=== PATIENT | female | born 1970 | race Asian ===

== ENCOUNTER 2017-02-23 19:19 | Inpatient (IN) ==
[2017-02-23] MEDS ORDERED: ONDANSETRON 4 MG/2 ML VIAL IV STA (19:44)
[2017-02-23] MEDS ORDERED: METOPROLOL TARTRATE 25 MG TABLET PO STA (19:44)
[2017-02-23] MEDS ORDERED: ASPIRIN 325 MG TABLET PO STA (19:44)
[2017-02-23] MEDS ORDERED: NITROGLYCERIN 2% OINT 1 INCH/GM PACK TOP STA (19:44)
[2017-02-23] MEDS ORDERED: MORPHINE 2 MG/1 ML SYRINGE IV STA (19:44)
[2017-02-23] MEDS ORDERED: SODIUM CHLORIDE 0.9% 500 ML IV STA (19:44)
[2017-02-23] MEDS ORDERED: ALUM/MAG/SIMETH/LIDO VISC 1:1 30 ML BOTTLE PO STA (19:44)
--- NOTE | 2017-02-23 19:54 | Emergency Department Note ---
Nikolai Holt Brittany, am scribing for, and in the presence of, Conor Lincoln MD 19:50. Salazar Holt Charles R, MD, personally performed the services described in this documentation, ascribed by Loraine Menchaca in my presence, and it is both accurate and complete [id number] . Arrival - Arrival Chief Complaint: Chest Pain Stated Complaint: bad headaches/chest pains and SOb/diabetic ED Nursing Triage Note: pt to triage with daughter. pt can speak a little latvian. daughter is interpertating for her. pt states throught daughter that she has been tired, having a headache, and chest pain since yesterday. daught er states pt has not taken her bp or dm meds chance few months Mode of Arrival: Ambulatory Limitations: Language Barrier Source: Patient, Family, Old Records Reviewed, RN Notes Reviewed Time Seen by Provider: 02/23/17 19:38 - History of Present Illness HPI Narrative: Ms. Conner is a 46 y/o female presenting to the ED with c/o chest pain with an onset of 2 days. Patient speaks little [place] so her daughter will be providing the history. Per daughter, patient began having chest pain yesterday and some epigastric pain as well. Chest pain is worsened with walking, but is relieved at rest. Patient has been short of breath and nauseated with this, but has had no diaphoresis, vomiting, arm pain, back pain, or neck pain. Patient was followed in [place] for a cardiac problem that the daughter believes to have been an artery problem. On exam patient is noted to have a systolic ejection murmur and daughter then states that she believes that her mother's heart problem might've in fact been the heart murmur in [place]. Patient has a history of Uterine Fibroid Tumors and daughter notes patient is on medication for this to shrink these. If patient's tumors have shrunk within the next 3 months her provider covering this will remove them -per daughter. Daughter denies patient having a history of GERD. No other complaint/pain. Onset (ago): day(s) (2) Consistency: intermittent Severity: moderate Severity scale (1-10): 6 Quality: aching Allergies/Adverse Reactions: Allergies Allergy/AdvReac Type Severity Reaction Status Date / Time No Known Allergies Allergy Unverified 02/23/17 19:33 Home Medications: Home Medications Medication Instructions Recorded Confirmed Type Phenazopyridine HCl [Pyridium] 200 mg PO TID #9 tablet 12/19/16 12/25/16 Rx HYDROcodone/ACETAMIN 7.5-325 1 tablet PO Q6H PRN #20 tablet 12/20/16 12/25/16 Rx [[place] 7.5-325] Ondansetron [Ondansetron Odt] 8 mg PO Q4H PRN #10 tab.rapdis 12/20/16 12/25/16 Rx Ondansetron Odt Tab [Zofran Odt] 4 mg PO Q6H #15 tablet 12/25/16 Rx Review of System - Review of System 12 point system: reviewed and no additional remarkable complaints except as stated - Review of System Constitutional: Absent: chills, fever Eyes: Absent: vision change Head/Ears/Nose/Throat: Absent: nasal drainage, sore throat Respiratory: Present: respiratory distress Cardiovascular: Present: chest pain Gastrointestinal: Present: abdominal pain, nausea. Absent: vomiting, diarrhea, constipation Genitourinary female: Absent: dysuria, frequency, urgency Musculoskeletal: Absent: arm pain, back pain, leg pain, neck pain Skin: Absent: rash Neurological: Absent: headache Psychiatric: Absent: anxiety, depression Hematological/Lymphatic: Absent: easy bleeding, easy bruising Medical,Surgical,& Family Hx - Medical History Cardio: History of: Hypertension Endocrine: History of: Diabetes Mellitus (NIDDM) No history of: Diabetes Mellitus (IDDM) - Surgical History Surgical History: noncontributory - Family History Family History: noncontributory - Social History Smoking Status: Never smoker Frequency of Alcohol Use: None Type of Drug Use: None Exam Vital Signs: Vital Signs Temperature 97.3 F L 02/23/17 19:26 Pulse Rate 73 02/23/17 19:26 Respiratory Rate 18 02/23/17 19:26 Blood Pressure 139/89 02/23/17 19:26 O2 Sat by Pulse Oximetry 99 02/23/17 19:26 - General General appearance: alert, in no apparent distress - Head Head exam: Present: atraumatic, normocephalic, normal inspection - Eye Eye exam: Present: normal appearance, PERRL, EOMI - ENT ENT exam: Present: normal exam, normal oropharynx - Neck Neck exam: Present: normal inspection, full ROM, trachea midline - Chest Chest inspection: Present: normal inspection, symmetric chest wall rise - Respiratory Respiratory exam: Present: normal lung sounds bilaterally - Cardiovascular Cardiovascular exam: Present: regular rate, normal rhythm, murmur (4/6 systolic ejection murmur, sounds almost like Mitral Valve Prolapse). Absent: normal heart sounds - Abdominal Exam Abdominal exam: Present: soft, tenderness (epigastric tenderness to palpation), normal bowel sounds - Extremities Exam Extremities exam: Present: full ROM, pedal edema (+1 edema to bilateral lower extremities) - Back Exam Back exam: Present: normal inspection - Neurological Exam Neurological exam: Present: alert, oriented X3, CN II-XII intact. Absent: motor sensory deficit - Psychiatric Psychiatric exam: Present: normal affect, normal mood - Skin Skin exam: Present: warm, dry, intact, normal color Course - Consultations Consultation #1: Hospitalist will admit patient Time: 20:51 Results - Labs CBC & BMP: 02/23/17 19:44 02/23/17 19:44 Lab Results: I have reviewed the patients labs Labs: Laboratory Tests 02/23/17 02/23/17 02/23/17 19:44 19:44 19:44 WBC 7.0 RBC 4.74 Hgb 13.2 Hct 39.2 MCV 82.7 L Plt Count 217 Urine Color Straw Urine Appearance Clear Urine pH 6.0 Ur Specific [place] 1.005 Urine Protein Negative Urine Glucose (UA) Negative Urine Ketones Negative Urine Blood Large Urine Nitrate Negative Urine Bilirubin Negative Urine Urobilinogen < 2.0 H Urine Leukocytes Negative Urine RBC 82 Urine WBC 4 Ur Squamous Epith Cells Occasional Urine Mucus Occasional Urine Opiates Screen Negative Ur Barbiturates Screen Negative Ur Phencyclidine Scrn Negative U Amphetamine/Methamph Negative U Benzodiazepines Scrn Negative U Cocaine Metab Screen Negative U Cannabinoids Screen Negative Laboratory Tests 02/23/17 02/23/17 02/23/17 19:44 19:44 19:44 INR PT Patient/Control Mix D-Dimer, Quantitative 0.7 Sodium 139 Potassium 3.5 Chloride 103 Carbon Dioxide 26 Anion Gap 13.5 BUN 14 Creatinine 0.60 GFR Calculation 105 BUN/Creatinine Ratio 23.00 H Glucose 130 H Calculated Osmolality 279.5 Calcium 9.2 Magnesium Total Bilirubin < 0.39 AST 31 ALT 51 Alkaline Phosphatase 95 Troponin I < 0.015 Total Protein 8.0 Albumin 4.2 Globulin 3.8 H Albumin/Globulin Ratio 1.1 Lipase 02/23/17 02/23/17 19:44 19:44 INR 0.9 PT Patient/Control Mix 9.7 D-Dimer, Quantitative Sodium Potassium Chloride Carbon Dioxide Anion Gap BUN Creatinine GFR Calculation BUN/Creatinine Ratio Glucose Calculated Osmolality Calcium Magnesium 1.9 Total Bilirubin AST ALT Alkaline Phosphatase Troponin I Total Protein Albumin Globulin Albumin/Globulin Ratio Lipase 212.0 Laboratory Tests 02/23/17 02/23/17 19:44 19:44 INR 0.9 PT Patient/Control Mix 9.7 D-Dimer, Quantitative 0.7 - Diagnostic Findings Procedure: Chest x-ray: image reviewed by me (Negative) Disposition Clinical Impression: Chest pain, Heart murmur, Angina, Diabetes, Hypertension, History of uterine fibroid Case discussed with: patient, patient's family Disposition: Still a Patient Condition: Stable Time of Disposition: 21:01
[2017-02-23 19:56] LABS: Basophils % 0.3 % (0.0-0.8); Eosinophils # 0.1 10*3/uL (0.0-0.87); Eosinophils % 1.6 % (0.00-10.9); Hematocrit 39.2 VOL% (35.7-47.0); Hemoglobin 13.2 GM/DL (12.0-16.0); Immature Granulocytes % 0.3 %; Immature Granulocytes Absolute 0.02 #; Lymphocytes # 2.7 10*3/uL (1.4-4.0); Mean Corpuscular HGB Conc 33.7 GM/DL (32-36); Mean Corpuscular Hemoglobin 28 PG (27-34); Mean Corpuscular Volume 82.7 FL (87-102); Monocytes # 0.4 10*3/uL (0.11-0.8); Monocytes % 6.3 % (1.7-12.7); Neutrophils # 3.8 10*3/uL (1.4-7.4); Neutrophils % 53.5 % (38.7-73.9); Platelet Count 217 T/CUMM (130-400); Red Blood Count 4.74 MC/CUMM (3.8-5.5); Red Cell Distribution Width 13.8 % (9.3-17.3)
[2017-02-23] MEDS ORDERED: ONDANSETRON 4 MG/2 ML VIAL ONE ×2 (20:01→22:40)
[2017-02-23] MEDS ORDERED: METOPROLOL TARTRATE 25 MG TABLET ONE (20:01)
[2017-02-23] MEDS ORDERED: NITROGLYCERIN 2% OINT 1 INCH/GM PACK TOP ONE (20:01)
[2017-02-23] MEDS ORDERED: ALUM/MAG/SIMETH/LIDO VISC 1:1 30 ML BOTTLE PO ONE (20:02)
[2017-02-23] MEDS ORDERED: ASPIRIN 325 MG TABLET ONE (20:02)
[2017-02-23] MEDS ORDERED: MORPHINE 2 MG/1 ML SYRINGE ONE (20:02)
[2017-02-23 20:05] LABS: Apearance,Urine CLEAR (Clear); Bilirubin,Urine Negative (Negative); Blood, Urine Large mg/dL (Negative); Glucose,Urine (UA) Negative (Negative); Ketones,Urine Negative (Negative); Mucus,Urine Occasional /LPF (Occasional); Nitrite,Urine Negative (Negative); Protein,Urine Negative; RBC,Urine 82 /HPF (0-4); Squamous Epithelial Cell,Urine Occasional /HPF (0-10); Urine Color Straw (Yellow); Urine Specific Gravity 1.005 (1.001-1.035); Urine Urobilinogen < 2.0 EU/DL (0.2-1.0); WBC,Urine 4 /HPF (0-6)
[2017-02-23 20:06] LABS: INR 0.9; PT Patient Result 9.7 SECS
[2017-02-23 20:09] LABS: Barbiturates Screen,Urine Negative (Negative); Benzodiazepines Screen,Urine Negative (Negative); Cannabinoid Screen,Urine Negative (Negative); Opiate Screen,Urine Negative (Negative); Phencyclidine Screen,Urine Negative (Negative)
[2017-02-23 20:14] LABS: Magnesium 1.9 MG/DL (1.8-2.4)
[2017-02-23 20:20] LABS: Alanine Aminotransferase 51 U/L (13-56); Albumin 4.2 G/DL (3.4-5.0); Alkaline Phosphatase 95 U/L (45-117); Aspartate Amino Transferase 31 U/L (0-37); Bilirubin,Total < 0.39 MG/DL (0.2-1.0); Blood Urea Nitrogen 14 MG/DL (7-18); Calcium 9.2 MG/DL (8.5-10.1); Glucose 130 MG/DL (74-106); Osmolality,Calculated 279.5 MOS/KG (273-304); Potassium 3.5 MMOL/L (3.5-5.1); Sodium 139 MMOL/L (136-145)
--- NOTE | 2017-02-23 20:42 | XRay Report ---
Exam: XR chest 2V Indication: Midline chest pain Comparison study: 12/20/2016 Findings: The heart, mediastinum and bony structures are stable from prior. There is no focal consolidation, pneumothorax or pleural effusion identified. Impression: No acute cardiopulmonary process. No significant change from prior. PROCEDURE INTERPRETED AT [facility] DEPARTMENT OF RADIOLOGY Final Report Signed by: Cayetano Rodgers
--- NOTE | 2017-02-23 21:43 | Hospitalist History & Physical ---
Assessment and Plan (1) Unstable angina Status: Acute Current Visit: Yes (2) Type 2 diabetes mellitus Status: Acute Current Visit: Yes Qualifiers: Diabetes mellitus complication status: with unspecified complications Diabetes mellitus long-term insulin use: without long-term use Qualified Code( s): E11.8 - Type 2 diabetes mellitus with unspecified complications (3) Medical non-compliance Status: Acute Current Visit: Yes (4) Nausea Status: Acute Assessment and plan: Plan: Admit to telemetry, start aspirin, statin, Lovenox, as needed nitroglycerin Cardiology consult in the morning, possible stress test Check serial cardiac enzymes, repeat EKG if chest pain returns Check A1c, sliding scale and Accu-Cheks for now Current Visit: Yes History of Present Illness Chief complaint: Chest pain/pressure, worse with exertion History of present illness: Ms. Conner is a 46 year old Maur[place] female, whose history is translated by her adult daughter. Apparently the patient has been having waxing and waning chest tightness and discomfort over the last week or so. It has worsened in intensity, and increased in frequency over the last 24 hours. Her daughter cannot convince her to come to the emergency room last night however today the pain, shortness of breath, and intractable nausea have become severe enough that the patient finally agreed to come the emergency room. To our knowledge she has no history of coronary artery disease, however she has a history of type 2 diabetes and has not taken her metformin in months. She was diagnosed with "pre-hypertension," and is not prescribed any antihypertensive. She rates her pain an 8 out of 10 at worst, exertion exacerbates her symptoms. The pain is nonradiating, localized substernally. Home Medications Medication Instructions Recorded Confirmed Type Phenazopyridine HCl [Pyridium] 200 mg PO TID #9 tablet 12/19/16 12/25/16 Rx HYDROcodone/ACETAMIN 7.5-325 1 tablet PO Q6H PRN #20 tablet 12/20/16 12/25/16 Rx [[place] 7.5-325] Ondansetron [Ondansetron Odt] 8 mg PO Q4H PRN #10 tab.rapdis 12/20/16 12/25/16 Rx Ondansetron Odt Tab [Zofran Odt] 4 mg PO Q6H #15 tablet 12/25/16 Rx Allergies Allergy/AdvReac Type Severity Reaction Status Date / Time No Known Allergies Allergy Unverified 02/23/17 19:33 Medical,Surgical,& Family Hx - Medical History Cardio: History of: Hypertension Endocrine: History of: Diabetes Mellitus (NIDDM) (Noncompliant with metformin for months according to daughter) No history of: Diabetes Mellitus (IDDM) - Surgical History Surgical History: noncontributory Additional Surgical History: Denies past surgical history - Family History Additional Family History: Unknown family history - Social History Smoking Status: Never smoker Frequency of Alcohol Use: None Type of Drug Use: None Marital Status: Unknown Functional capacity: independent ambulation Review of systems: A 12 point review of systems is negative except as specified in the HPI Exam - Constitutional Vitals: Period Temp Pulse Resp BP Sys/[place] Pulse Ox Last 24 Hr 97.3 F-97.3 F 73-73 18-18 139-139/89-89 99 Exam: EXAM: CONSTITUTIONAL: non toxic, NAD HEENT: NC, AT, OP benign, LYNDON, EOMI CV: RRR no m/g/r, no reproducible pain with palpation RESP: clear B/L, no w/r/r GI: abd soft, NT, ND, +bowel sounds INTEGUMENTARY: no lesions or rash EXTREMITIES: no c/c/e NEURO: no focal deficits PSYCH: unremarkable, A/O x3 Results - Labs CBC & BMP: 02/23/17 19:44 02/23/17 19:44 Lab Results: I have reviewed the past 24 hour labs - EKG EKG shows: sinus rhythm - Diagnostic Findings Procedure: Chest x-ray: image reviewed by me, report reviewed by me
[2017-02-23] MEDS ORDERED: MORPHINE 2 MG/1 ML SYRINGE IV PRN (22:02)
[2017-02-23] MEDS ORDERED: BISACODYL 5 MG TABLET PO PRN (22:02)
[2017-02-23] MEDS ORDERED: GLUCAGON 1 MG VIAL IM PRN (22:02)
[2017-02-23] MEDS ORDERED: ACETAMINOPHEN 325 MG TABLET PO PRN (22:02)
[2017-02-23] MEDS ORDERED: ONDANSETRON 4 MG/2 ML VIAL IV PRN (22:02)
[2017-02-23] MEDS ORDERED: DEXTROSE 50% 25 GM/50 ML VIAL IV PRN (22:02)
[2017-02-23] MEDS ORDERED: PROMETHAZINE 25 MG/1 ML VIAL IM PRN (22:02)
[2017-02-23] MEDS ORDERED: NITROGLYCERIN SL 0.4 MG TABLET SL PRN (22:06)
[2017-02-23] MEDS ORDERED: ATORVASTATIN 40 MG TABLET PO SCH (22:50)
[2017-02-24] MEDS: ENOXAPARIN 80 MG/0.8 ML SYRINGE SUBCUT SCH ×2 (00:23→11:31)
[2017-02-24 00:31] LABS: Troponin I Only < 0.015 NG/ML (0.00-0.045)
[2017-02-24 02:28] LABS: Basophils % 0.7 % (0.0-0.8); Eosinophils # 0.1 10*3/uL (0.0-0.87); Hematocrit 36.2 VOL% (35.7-47.0); Immature Granulocytes % 0.3 %; Immature Granulocytes Absolute 0.02 #; Lymphocytes # 1.7 10*3/uL (1.4-4.0); Lymphocytes % 27.6 % (21.3-54.2); Mean Corpuscular HGB Conc 33.1 GM/DL (32-36); Mean Corpuscular Hemoglobin 27 PG (27-34); Mean Corpuscular Volume 82.5 FL (87-102); Mean Platelet Volume 12.3 FL (9.6-12.0); Monocytes # 0.4 10*3/uL (0.11-0.8); Monocytes % 5.7 % (1.7-12.7); Neutrophils % 64.7 % (38.7-73.9); Platelet Count 188 T/CUMM (130-400); Red Blood Count 4.39 MC/CUMM (3.8-5.5); Red Cell Distribution Width 13.5 % (9.3-17.3); White Blood Count 6.1 T/CUMM (4-12)
[2017-02-24 03:05] LABS: Albumin 3.5 G/DL (3.4-5.0); Bilirubin,Total 0.8 MG/DL (0.2-1.0); Calcium 8.6 MG/DL (8.5-10.1); Magnesium 1.8 MG/DL (1.8-2.4); Osmolality,Calculated 283.3 MOS/KG (273-304); Potassium 3.7 MMOL/L (3.5-5.1); Risk Ratio 4.33; Total Protein 6.8 G/DL (6.4-8.3); VLDL CHOLESTEROL 21.6 MG/DL
--- NOTE | 2017-02-24 06:54 | EKG Report ---
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
[2017-02-24 07:09] LABS: Troponin I Only < 0.015 NG/ML (0.00-0.045)
[2017-02-24] MEDS: INSULIN REGULAR 100 UNIT/ML SUBCUT SCH ×2 (08:37→12:32)
[2017-02-24] MEDS ORDERED: ASPIRIN EC 325 MG TABLET PO SCH (09:00)
[2017-02-24] MEDS ORDERED: PANTOPRAZOLE 40 MG TABLET PO SCH (09:00)
--- NOTE | 2017-02-24 10:17 | EKG Report ---
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
[2017-02-24 12:22] VITALS: BP 128/73
--- NOTE | 2017-02-24 12:41 | Cardiology Consult Note ---
Assessment and Plan (1) Nausea Status: Acute Assessment and plan: She has had multiple episodes of nausea and vomiting over the last few months. She may benefit from a gastroenterology evaluation as an outpatient. Current Visit: Yes (2) Chest pain Status: Acute Assessment and plan: The patient has atypical chest pain with a normal EKG and multiple sets of negative cardiac enzymes. Patient wants to go home. I think this is reasonable. I would like for her to have a nuclear stress test done in the clinic sometime next week and we can follow-up with her after this. Current Visit: Yes (3) Hypertension Status: Acute Current Visit: Yes (4) Medical non-compliance Status: Acute Current Visit: Yes (5) Type 2 diabetes mellitus Status: Acute Current Visit: Yes Qualifiers: Diabetes mellitus complication status: with unspecified complications Diabetes mellitus fci insulin use: without supervisor intermediates use Qualified Code( s): E11.8 - Type 2 diabetes mellitus with unspecified complications History of Present Illness - Consult Narrative History of present illness: Ms. Conner is a 46 year old female with a history of mild type 2 diabetes. The patient does not speak Togolese and so the history is obtained from her daughter who translated. Patient has apparently been "feeling bad" for the last week or so. She feels tired, nauseated, and last night had multiple episodes of vomiting. She has some occasional chest pain symptoms. This is in the left upper chest area. There is no radiation. There is no associated diaphoresis. She has had episodes of nausea but they are not specifically associated with chest pain. There is no specific exacerbating or relieving factors. The symptoms are moderate in severity. She has no known history of coronary artery disease. The patient apparently has been having headaches on and off associated with her nausea. It is unclear if this could be a migraine type phenomenon. She was treated with Zofran and her nausea symptoms have resolved. At the time I was seeing her she was feeling back to normal and was wanting to go home. The patient's daughter reports that she had a stress test years ago in [place] that did not show any high risk features apparently. I do not have any of these reports. Reviewing her old records here, she did have multiple emergency room visits recently with abdominal discomfort and nausea/ vomiting. Her workups have been benign, although she did have uterine fibroids. CC: Pattie Ellis MD - Home Medications and Allergies Home Medications: Home Medications Medication Instructions Recorded Confirmed Type No Known Home Medications [No 02/24/17 02/24/17 History Known Home Medications] Allergies/Adverse Reactions: Allergies Allergy/AdvReac Type Severity Reaction Status Date / Time No Known Allergies Allergy Unverified 02/23/17 19:33 12 point system: reviewed and no additional remarkable complaints except as stated Medical,Surgical,& Family Hx - Medical History Cardio: History of: Hypertension Endocrine: History of: Diabetes Mellitus (NIDDM) (Noncompliant with metformin for months according to daughter) No history of: Diabetes Mellitus (IDDM) - Social History Smoking Status: Never smoker Frequency of Alcohol Use: None Type of Drug Use: None Physical Examination Vital Signs Temp Pulse Resp BP Pulse Ox 97.3 F L 73 18 139/89 99 02/23/17 19:26 02/23/17 19:26 02/23/17 19:26 02/23/17 19:26 02/23/17 19:26 Other: General: Appears well developed, well nourished, no apparent distress HEENT: Normocephalic, atraumatic Neck: Supple Neck, Midline Trachea, No Bruit, No JVD Cardiac: Regular rhythm, No Murmur, no gallop, no rub Lungs: Clear to auscultation, No Wheeze, Rales, Rhonchi Neuro: Cranial Nerve 2-12 Intact, Motor Function Grossly Intact Abdomen: Soft, Active Bowel Sounds, No Masses, No Pulsations/Bruits Skin: Normal color, no rash Extremities: No Clubbing, No Cyanosis, No Edema, Normal Upper Extr. Pulses Musculoskeletal: No acute abnormality noted Psychiatric: The patient does not appear to be anxious or depressed Result/EKG - Labs CBC & BMP: 02/24/17 01:59 02/24/17 01:59 Lab Results: I have reviewed the past 24 hour labs Labs: Laboratory Results - last 24 hr 02/23/17 02/23/17 02/23/17 19:44 19:44 19:44 WBC 7.0 RBC 4.74 Hgb 13.2 Hct 39.2 MCV 82.7 L MCH 28 MCHC 33.7 RDW 13.8 Plt Count 217 MPV 12.0 Neut % (Auto) 53.5 Lymph % (Auto) 38.0 [place] % (Auto) 6.3 Eos % (Auto) 1.6 Baso % (Auto) 0.3 Neut # (Auto) 3.8 Lymph # (Auto) 2.7 [place] # (Auto) 0.4 Eos # (Auto) 0.1 Baso # (Auto) 0.0 Immature Gran % 0.3 Nucleated RBC % 0.0 Immature Gran # 0.02 Nucleated RBCs # 0.00 INR PT Patient/Control Mix D-Dimer, Quantitative 0.7 Sodium 139 Potassium 3.5 Chloride 103 Carbon Dioxide 26 Anion Gap 13.5 BUN 14 Creatinine 0.60 GFR Calculation 105 BUN/Creatinine Ratio 23.00 H Glucose 130 H POC Glucose Hemoglobin A1c Calculated Osmolality 279.5 Calcium 9.2 Magnesium Total Bilirubin < 0.39 AST 31 ALT 51 Alkaline Phosphatase 95 Total Creatine Kinase CK-MB (CK-2) Troponin I B-Natriuretic Peptide Total Protein 8.0 Albumin 4.2 Globulin 3.8 H Albumin/Globulin Ratio 1.1 Triglycerides Cholesterol LDL Cholesterol VLDL Cholesterol HDL Cholesterol Heart Disease Risk Ratio Lipase Urine Color Urine Appearance Urine pH Ur Specific [place] Urine Protein Urine Glucose (UA) Urine Ketones Urine Blood Urine Nitrate Urine Bilirubin Urine Urobilinogen Urine Leukocytes Urine RBC Urine WBC Ur Squamous Epith Cells Urine Mucus Ur Culture Indicated? Urine Opiates Screen Ur Barbiturates Screen Ur Phencyclidine Scrn U Amphetamine/Methamph U Benzodiazepines Scrn U Cocaine Metab Screen U Cannabinoids Screen 02/23/17 02/23/17 02/23/17 19:44 19:44 19:44 WBC RBC Hgb Hct MCV MCH MCHC RDW Plt Count MPV Neut % (Auto) Lymph % (Auto) [place] % (Auto) Eos % (Auto) Baso % (Auto) Neut # (Auto) Lymph # (Auto) [place] # (Auto) Eos # (Auto) Baso # (Auto) Immature Gran % Nucleated RBC % Immature Gran # Nucleated RBCs # INR 0.9 PT Patient/Control Mix 9.7 D-Dimer, Quantitative Sodium Potassium Chloride Carbon Dioxide Anion Gap BUN Creatinine GFR Calculation BUN/Creatinine Ratio Glucose POC Glucose Hemoglobin A1c Calculated Osmolality Calcium Magnesium Total Bilirubin AST ALT Alkaline Phosphatase Total Creatine Kinase CK-MB (CK-2) Troponin I < 0.015 B-Natriuretic Peptide Total Protein Albumin Globulin Albumin/Globulin Ratio Triglycerides Cholesterol LDL Cholesterol VLDL Cholesterol HDL Cholesterol Heart Disease Risk Ratio Lipase Urine Color Straw Urine Appearance Clear Urine pH 6.0 Ur Specific [place] 1.005 Urine Protein Negative Urine Glucose (UA) Negative Urine Ketones Negative Urine Blood Large Urine Nitrate Negative Urine Bilirubin Negative Urine Urobilinogen < 2.0 H Urine Leukocytes Negative Urine RBC 82 Urine WBC 4 Ur Squamous Epith Cells Occasional Urine Mucus Occasional Ur Culture Indicated? Not indicated Urine Opiates Screen Ur Barbiturates Screen Ur Phencyclidine Scrn U Amphetamine/Methamph U Benzodiazepines Scrn U Cocaine Metab Screen U Cannabinoids Screen 02/23/17 02/23/17 02/23/17 19:44 19:44 19:44 WBC RBC Hgb Hct MCV MCH MCHC RDW Plt Count MPV Neut % (Auto) Lymph % (Auto) [place] % (Auto) Eos % (Auto) Baso % (Auto) Neut # (Auto) Lymph # (Auto) [place] # (Auto) Eos # (Auto) Baso # (Auto) Immature Gran % Nucleated RBC % Immature Gran # Nucleated RBCs # INR PT Patient/Control Mix D-Dimer, Quantitative Sodium Potassium Chloride Carbon Dioxide Anion Gap BUN Creatinine GFR Calculation BUN/Creatinine Ratio Glucose POC Glucose Hemoglobin A1c Calculated Osmolality Calcium Magnesium 1.9 Total Bilirubin AST ALT Alkaline Phosphatase Total Creatine Kinase CK-MB (CK-2) Troponin I B-Natriuretic Peptide 25 Total Protein Albumin Globulin Albumin/Globulin Ratio Triglycerides Cholesterol LDL Cholesterol VLDL Cholesterol HDL Cholesterol Heart Disease Risk Ratio Lipase 212.0 Urine Color Urine Appearance Urine pH Ur Specific [place] Urine Protein Urine Glucose (UA) Urine Ketones Urine Blood Urine Nitrate Urine Bilirubin Urine Urobilinogen Urine Leukocytes Urine RBC Urine WBC Ur Squamous Epith Cells Urine Mucus Ur Culture Indicated? Urine Opiates Screen Negative Ur Barbiturates Screen Negative Ur Phencyclidine Scrn Negative U Amphetamine/Methamph Negative U Benzodiazepines Scrn Negative U Cocaine Metab Screen Negative U Cannabinoids Screen Negative 02/23/17 02/24/17 02/24/17 23:12 00:00 01:59 WBC RBC Hgb Hct MCV MCH MCHC RDW Plt Count MPV Neut % (Auto) Lymph % (Auto) [place] % (Auto) Eos % (Auto) Baso % (Auto) Neut # (Auto) Lymph # (Auto) [place] # (Auto) Eos # (Auto) Baso # (Auto) Immature Gran % Nucleated RBC % Immature Gran # Nucleated RBCs # INR PT Patient/Control Mix D-Dimer, Quantitative Sodium Potassium Chloride Carbon Dioxide Anion Gap BUN Creatinine GFR Calculation BUN/Creatinine Ratio Glucose POC Glucose Hemoglobin A1c Calculated Osmolality Calcium Magnesium Total Bilirubin AST ALT Alkaline Phosphatase Total Creatine Kinase 127 CK-MB (CK-2) 1.1 Troponin I < 0.015 < 0.015 < 0.015 B-Natriuretic Peptide Total Protein Albumin Globulin Albumin/Globulin Ratio Triglycerides Cholesterol LDL Cholesterol VLDL Cholesterol HDL Cholesterol Heart Disease Risk Ratio Lipase Urine Color Urine Appearance Urine pH Ur Specific [place] Urine Protein Urine Glucose (UA) Urine Ketones Urine Blood Urine Nitrate Urine Bilirubin Urine Urobilinogen Urine Leukocytes Urine RBC Urine WBC Ur Squamous Epith Cells Urine Mucus Ur Culture Indicated? Urine Opiates Screen Ur Barbiturates Screen Ur Phencyclidine Scrn U Amphetamine/Methamph U Benzodiazepines Scrn U Cocaine Metab Screen U Cannabinoids Screen 02/24/17 02/24/17 02/24/17 01:59 01:59 01:59 WBC 6.1 RBC 4.39 Hgb 12.0 Hct 36.2 MCV 82.5 L MCH 27 MCHC 33.1 RDW 13.5 Plt Count 188 MPV 12.3 H Neut % (Auto) 64.7 Lymph % (Auto) 27.6 [place] % (Auto) 5.7 Eos % (Auto) 1.0 Baso % (Auto) 0.7 Neut # (Auto) 4.0 Lymph # (Auto) 1.7 [place] # (Auto) 0.4 Eos # (Auto) 0.1 Baso # (Auto) 0.0 Immature Gran % 0.3 Nucleated RBC % 0.0 Immature Gran # 0.02 Nucleated RBCs # 0.00 INR PT Patient/Control Mix D-Dimer, Quantitative Sodium 141 Potassium 3.7 Chloride 106 Carbon Dioxide 24 Anion Gap 14.7 BUN 11 Creatinine 0.60 GFR Calculation 105 BUN/Creatinine Ratio 18.00 Glucose 167 H POC Glucose Hemoglobin A1c 8.0 H Calculated Osmolality 283.3 Calcium 8.6 Magnesium 1.8 Total Bilirubin 0.80 AST 30 ALT 43 Alkaline Phosphatase 73 Total Creatine Kinase CK-MB (CK-2) Troponin I B-Natriuretic Peptide Total Protein 6.8 Albumin 3.5 Globulin 3.3 Albumin/Globulin Ratio 1.0 L Triglycerides 108 Cholesterol 169 LDL Cholesterol 108.0 VLDL Cholesterol 21.6 HDL Cholesterol 39 L Heart Disease Risk Ratio 4.33 Lipase Urine Color Urine Appearance Urine pH Ur Specific [place] Urine Protein Urine Glucose (UA) Urine Ketones Urine Blood Urine Nitrate Urine Bilirubin Urine Urobilinogen Urine Leukocytes Urine RBC Urine WBC Ur Squamous Epith Cells Urine Mucus Ur Culture Indicated? Urine Opiates Screen Ur Barbiturates Screen Ur Phencyclidine Scrn U Amphetamine/Methamph U Benzodiazepines Scrn U Cocaine Metab Screen U Cannabinoids Screen 02/24/17 02/24/17 02/24/17 06:20 07:55 12:01 WBC RBC Hgb Hct MCV MCH MCHC RDW Plt Count MPV Neut % (Auto) Lymph % (Auto) [place] % (Auto) Eos % (Auto) Baso % (Auto) Neut # (Auto) Lymph # (Auto) [place] # (Auto) Eos # (Auto) Baso # (Auto) Immature Gran % Nucleated RBC % Immature Gran # Nucleated RBCs # INR PT Patient/Control Mix D-Dimer, Quantitative Sodium Potassium Chloride Carbon Dioxide Anion Gap BUN Creatinine GFR Calculation BUN/Creatinine Ratio Glucose POC Glucose 138 H 100 Hemoglobin A1c Calculated Osmolality Calcium Magnesium Total Bilirubin AST ALT Alkaline Phosphatase Total Creatine Kinase 310 H D CK-MB (CK-2) 2.7 Troponin I < 0.015 B-Natriuretic Peptide Total Protein Albumin Globulin Albumin/Globulin Ratio Triglycerides Cholesterol LDL Cholesterol VLDL Cholesterol HDL Cholesterol Heart Disease Risk Ratio Lipase Urine Color Urine Appearance Urine pH Ur Specific [place] Urine Protein Urine Glucose (UA) Urine Ketones Urine Blood Urine Nitrate Urine Bilirubin Urine Urobilinogen Urine Leukocytes Urine RBC Urine WBC Ur Squamous Epith Cells Urine Mucus Ur Culture Indicated? Urine Opiates Screen Ur Barbiturates Screen Ur Phencyclidine Scrn U Amphetamine/Methamph U Benzodiazepines Scrn U Cocaine Metab Screen U Cannabinoids Screen - EKG EKG results: interpreted by me
--- NOTE | 2017-02-24 14:18 | Discharge Summary ---
Hospital Course - Hospital Course Hospital Course: Ms Conner presented with atypical chest pain. She has been seen by DR Domínguez who noted her untreated diabetes (she stopped taking her meds a while ago) and he recommends she have an outpatient stress test next week. This morning she complains of suprapubic achiness and has her period which also explains her hematuria. She is being treated by her CATEGORY SPECIALIST for menstrual cramps exacerbated by fibroids. She feels good today and wants to go home. Her daughter is here and serves as heating and cooling technician. She told DR Domínguez she has had nausea and vomiting over the last few months so I will refer her to outpatient GI. - Time spent with patient Time with patient DS: Less than 30 minutes Diagnosis - Discharge Diagnosis (1) Atypical chest pain Status: Resolved (2) History of uterine fibroid Status: Chronic (3) Type 2 diabetes mellitus Status: Chronic (4) Medical non-compliance Status: Chronic (5) Nausea Status: Chronic Specialty Discharge - Follow Up or Referrals Follow up with: Stevenson Domínguez MD [Physician] - 1 Week (out patient stress test) GI, clinic [Other] (make her an appointment with the GI MD confectionery drops machine operator today for next week or so for nausea) Your, lacing string cutter [Other] (follow up with your CATEGORY SPECIALIST for treatment of your fibroid uterus.) Discharge Plan - Discharge Data Disposition: Disch To Home/Self Care Condition at Discharge: Stable Discharge Diet: diabetic diet Activity: resume usual activities as tolerated - Discharge Medications New Pantoprazole Tab [Protonix Tab] 40 mg PO DAILY #30 tablet metFORMIN [Glucophage] 500 mg PO BID W/MEALS #60 tablet - Follow Up or Referral Follow Up: GI, clinic [Other] (make her an appointment with the GI MD confectionery drops machine operator today for next week or so for nausea) Your, lacing string cutter [Other] (follow up with your CATEGORY SPECIALIST for treatment of your fibroid uterus.) Stevenson Domínguez MD [Physician] - 1 Week (out patient stress test) - Forms/Instructions Instructions: Acute Nausea and Vomiting (DC), Abdominal Pain, Wildlife Management Professor ( GEN) Exam - Constitutional Vitals: Period Temp Pulse Resp BP Sys/[place] Pulse Ox Last 24 Hr 97.3 F-98.5 F 52-73 16-20 115-167/67-95 98-100 General appearance: normal weight, no acute distress - Head Head exam: Present: normocephalic, atraumatic - Eye Eye exam: Present: EOMI. Absent: scleral icterus - Respiratory Respiratory exam: Present: clear to auscultation bilaterally - Cardiovascular Cardiovascular exam: Present: regular rate and rhythm, other (no chest tenderness). Absent: diastolic murmur, systolic murmur - GI/Abdominal GI/Abdominal exam: Present: normal bowel sounds, soft. Absent: tenderness ( suprapubic soreness, no rebound or guarding. No tenderness in other areas of abdomen. ) - Extremities Exam Extremities exam: Absent: edema Discharge Results Labs on day of discharge: Labs from last 24 hours 02/24/17 02/24/17 02/24/17 12:01 07:55 06:20 WBC RBC Hgb Hct MCV MCH MCHC RDW Plt Count MPV Neut % (Auto) Lymph % (Auto) [place] % (Auto) Eos % (Auto) Baso % (Auto) Neut # (Auto) Lymph # (Auto) [place] # (Auto) Eos # (Auto) Baso # (Auto) Immature Gran % Nucleated RBC % Immature Gran # Nucleated RBCs # INR PT Patient/Control Mix D-Dimer, Quantitative Sodium Potassium Chloride Carbon Dioxide Anion Gap BUN Creatinine GFR Calculation BUN/Creatinine Ratio Glucose POC Glucose 100 138 H Hemoglobin A1c Calculated Osmolality Calcium Magnesium Total Bilirubin AST ALT Alkaline Phosphatase Total Creatine Kinase 310 H D CK-MB (CK-2) 2.7 Troponin I < 0.015 B-Natriuretic Peptide Total Protein Albumin Globulin Albumin/Globulin Ratio Triglycerides Cholesterol LDL Cholesterol VLDL Cholesterol HDL Cholesterol Heart Disease Risk Ratio Lipase Urine Color Urine Appearance Urine pH Ur Specific [place] Urine Protein Urine Glucose (UA) Urine Ketones Urine Blood Urine Nitrate Urine Bilirubin Urine Urobilinogen Urine Leukocytes Urine RBC Urine WBC Ur Squamous Epith Cells Urine Mucus Ur Culture Indicated? Urine Opiates Screen Ur Barbiturates Screen Ur Phencyclidine Scrn U Amphetamine/Methamph U Benzodiazepines Scrn U Cocaine Metab Screen U Cannabinoids Screen 02/24/17 02/24/17 02/24/17 01:59 01:59 01:59 WBC 6.1 RBC 4.39 Hgb 12.0 Hct 36.2 MCV 82.5 L MCH 27 MCHC 33.1 RDW 13.5 Plt Count 188 MPV 12.3 H Neut % (Auto) 64.7 Lymph % (Auto) 27.6 [place] % (Auto) 5.7 Eos % (Auto) 1.0 Baso % (Auto) 0.7 Neut # (Auto) 4.0 Lymph # (Auto) 1.7 [place] # (Auto) 0.4 Eos # (Auto) 0.1 Baso # (Auto) 0.0 Immature Gran % 0.3 Nucleated RBC % 0.0 Immature Gran # 0.02 Nucleated RBCs # 0.00 INR PT Patient/Control Mix D-Dimer, Quantitative Sodium 141 Potassium 3.7 Chloride 106 Carbon Dioxide 24 Anion Gap 14.7 BUN 11 Creatinine 0.60 GFR Calculation 105 BUN/Creatinine Ratio 18.00 Glucose 167 H POC Glucose Hemoglobin A1c 8.0 H Calculated Osmolality 283.3 Calcium 8.6 Magnesium 1.8 Total Bilirubin 0.80 AST 30 ALT 43 Alkaline Phosphatase 73 Total Creatine Kinase CK-MB (CK-2) Troponin I B-Natriuretic Peptide Total Protein 6.8 Albumin 3.5 Globulin 3.3 Albumin/Globulin Ratio 1.0 L Triglycerides 108 Cholesterol 169 LDL Cholesterol 108.0 VLDL Cholesterol 21.6 HDL Cholesterol 39 L Heart Disease Risk Ratio 4.33 Lipase Urine Color Urine Appearance Urine pH Ur Specific [place] Urine Protein Urine Glucose (UA) Urine Ketones Urine Blood Urine Nitrate Urine Bilirubin Urine Urobilinogen Urine Leukocytes Urine RBC Urine WBC Ur Squamous Epith Cells Urine Mucus Ur Culture Indicated? Urine Opiates Screen Ur Barbiturates Screen Ur Phencyclidine Scrn U Amphetamine/Methamph U Benzodiazepines Scrn U Cocaine Metab Screen U Cannabinoids Screen 02/24/17 02/24/17 02/23/17 01:59 00:00 23:12 WBC RBC Hgb Hct MCV MCH MCHC RDW Plt Count MPV Neut % (Auto) Lymph % (Auto) [place] % (Auto) Eos % (Auto) Baso % (Auto) Neut # (Auto) Lymph # (Auto) [place] # (Auto) Eos # (Auto) Baso # (Auto) Immature Gran % Nucleated RBC % Immature Gran # Nucleated RBCs # INR PT Patient/Control Mix D-Dimer, Quantitative Sodium Potassium Chloride Carbon Dioxide Anion Gap BUN Creatinine GFR Calculation BUN/Creatinine Ratio Glucose POC Glucose Hemoglobin A1c Calculated Osmolality Calcium Magnesium Total Bilirubin AST ALT Alkaline Phosphatase Total Creatine Kinase 127 CK-MB (CK-2) 1.1 Troponin I < 0.015 < 0.015 < 0.015 B-Natriuretic Peptide Total Protein Albumin Globulin Albumin/Globulin Ratio Triglycerides Cholesterol LDL Cholesterol VLDL Cholesterol HDL Cholesterol Heart Disease Risk Ratio Lipase Urine Color Urine Appearance Urine pH Ur Specific [place] Urine Protein Urine Glucose (UA) Urine Ketones Urine Blood Urine Nitrate Urine Bilirubin Urine Urobilinogen Urine Leukocytes Urine RBC Urine WBC Ur Squamous Epith Cells Urine Mucus Ur Culture Indicated? Urine Opiates Screen Ur Barbiturates Screen Ur Phencyclidine Scrn U Amphetamine/Methamph U Benzodiazepines Scrn U Cocaine Metab Screen U Cannabinoids Screen 02/23/17 02/23/17 02/23/17 19:44 19:44 19:44 WBC RBC Hgb Hct MCV MCH MCHC RDW Plt Count MPV Neut % (Auto) Lymph % (Auto) [place] % (Auto) Eos % (Auto) Baso % (Auto) Neut # (Auto) Lymph # (Auto) [place] # (Auto) Eos # (Auto) Baso # (Auto) Immature Gran % Nucleated RBC % Immature Gran # Nucleated RBCs # INR PT Patient/Control Mix D-Dimer, Quantitative Sodium Potassium Chloride Carbon Dioxide Anion Gap BUN Creatinine GFR Calculation BUN/Creatinine Ratio Glucose POC Glucose Hemoglobin A1c Calculated Osmolality Calcium Magnesium 1.9 Total Bilirubin AST ALT Alkaline Phosphatase Total Creatine Kinase CK-MB (CK-2) Troponin I B-Natriuretic Peptide 25 Total Protein Albumin Globulin Albumin/Globulin Ratio Triglycerides Cholesterol LDL Cholesterol VLDL Cholesterol HDL Cholesterol Heart Disease Risk Ratio Lipase 212.0 Urine Color Urine Appearance Urine pH Ur Specific [place] Urine Protein Urine Glucose (UA) Urine Ketones Urine Blood Urine Nitrate Urine Bilirubin Urine Urobilinogen Urine Leukocytes Urine RBC Urine WBC Ur Squamous Epith Cells Urine Mucus Ur Culture Indicated? Urine Opiates Screen Negative Ur Barbiturates Screen Negative Ur Phencyclidine Scrn Negative U Amphetamine/Methamph Negative U Benzodiazepines Scrn Negative U Cocaine Metab Screen Negative U Cannabinoids Screen Negative 02/23/17 02/23/17 02/23/17 19:44 19:44 19:44 WBC RBC Hgb Hct MCV MCH MCHC RDW Plt Count MPV Neut % (Auto) Lymph % (Auto) [place] % (Auto) Eos % (Auto) Baso % (Auto) Neut # (Auto) Lymph # (Auto) [place] # (Auto) Eos # (Auto) Baso # (Auto) Immature Gran % Nucleated RBC % Immature Gran # Nucleated RBCs # INR 0.9 PT Patient/Control Mix 9.7 D-Dimer, Quantitative Sodium Potassium Chloride Carbon Dioxide Anion Gap BUN Creatinine GFR Calculation BUN/Creatinine Ratio Glucose POC Glucose Hemoglobin A1c Calculated Osmolality Calcium Magnesium Total Bilirubin AST ALT Alkaline Phosphatase Total Creatine Kinase CK-MB (CK-2) Troponin I < 0.015 B-Natriuretic Peptide Total Protein Albumin Globulin Albumin/Globulin Ratio Triglycerides Cholesterol LDL Cholesterol VLDL Cholesterol HDL Cholesterol Heart Disease Risk Ratio Lipase Urine Color Straw Urine Appearance Clear Urine pH 6.0 Ur Specific [place] 1.005 Urine Protein Negative Urine Glucose (UA) Negative Urine Ketones Negative Urine Blood Large Urine Nitrate Negative Urine Bilirubin Negative Urine Urobilinogen < 2.0 H Urine Leukocytes Negative Urine RBC 82 Urine WBC 4 Ur Squamous Epith Cells Occasional Urine Mucus Occasional Ur Culture Indicated? Not indicated Urine Opiates Screen Ur Barbiturates Screen Ur Phencyclidine Scrn U Amphetamine/Methamph U Benzodiazepines Scrn U Cocaine Metab Screen U Cannabinoids Screen 02/23/17 02/23/17 02/23/17 19:44 19:44 19:44 WBC 7.0 RBC 4.74 Hgb 13.2 Hct 39.2 MCV 82.7 L MCH 28 MCHC 33.7 RDW 13.8 Plt Count 217 MPV 12.0 Neut % (Auto) 53.5 Lymph % (Auto) 38.0 [place] % (Auto) 6.3 Eos % (Auto) 1.6 Baso % (Auto) 0.3 Neut # (Auto) 3.8 Lymph # (Auto) 2.7 [place] # (Auto) 0.4 Eos # (Auto) 0.1 Baso # (Auto) 0.0 Immature Gran % 0.3 Nucleated RBC % 0.0 Immature Gran # 0.02 Nucleated RBCs # 0.00 INR PT Patient/Control Mix D-Dimer, Quantitative 0.7 Sodium 139 Potassium 3.5 Chloride 103 Carbon Dioxide 26 Anion Gap 13.5 BUN 14 Creatinine 0.60 GFR Calculation 105 BUN/Creatinine Ratio 23.00 H Glucose 130 H POC Glucose Hemoglobin A1c Calculated Osmolality 279.5 Calcium 9.2 Magnesium Total Bilirubin < 0.39 AST 31 ALT 51 Alkaline Phosphatase 95 Total Creatine Kinase CK-MB (CK-2) Troponin I B-Natriuretic Peptide Total Protein 8.0 Albumin 4.2 Globulin 3.8 H Albumin/Globulin Ratio 1.1 Triglycerides Cholesterol LDL Cholesterol VLDL Cholesterol HDL Cholesterol Heart Disease Risk Ratio Lipase Urine Color Urine Appearance Urine pH Ur Specific [place] Urine Protein Urine Glucose (UA) Urine Ketones Urine Blood Urine Nitrate Urine Bilirubin Urine Urobilinogen Urine Leukocytes Urine RBC Urine WBC Ur Squamous Epith Cells Urine Mucus Ur Culture Indicated? Urine Opiates Screen Ur Barbiturates Screen Ur Phencyclidine Scrn U Amphetamine/Methamph U Benzodiazepines Scrn U Cocaine Metab Screen U Cannabinoids Screen DS: Provider Date of admission: 02/23/17 22:02 Primary care physician: . No PCP Attending physician on admission: Shimon Rahman DO Consults: 02/23/17 22:02 Consult to Physician [CONS] Routine Comment: unstable angina, [id number] Consulting Provider: Stevenson Domínguez Consult to Specialist Group: Cardiology When should Consulting Provider be notified: In am Person Notified: Dr Domínguez Date Notified: 02/24/17 Time Notified: 11:26 Consult Notification Comment: will see today Discharging clinician: Pattie Ellis MD
== END 2017-02-24 15:18 | disposition home or self-care (01) | DRG 313 ==
LOC: N.ED 19:19 → N.EDINP 22:02 → SUATTDRO 22:02 → N.TELEN 22:32
PROVIDERS: ADMIT Internal Medicine; ATTEND Internal Medicine

== ENCOUNTER 2017-06-12 06:14 | Inpatient (IN) ==
--- NOTE | 2017-06-04 12:13 | EKG Report ---
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
[2017-06-04 12:16] LABS: Apearance,Urine CLEAR (Clear); Bilirubin,Urine Negative (Negative); Blood, Urine Negative (Negative); Glucose,Urine (UA) >=500 mg/dL (Negative); Ketones,Urine Negative (Negative); Nitrite,Urine Negative (Negative); Protein,Urine Negative; RBC,Urine <1 /HPF (0-4); Squamous Epithelial Cell,Urine Occasional /HPF (0-10); Urine Color Straw (Yellow); Urine Specific Gravity 1.008 (1.001-1.035); Urine Urobilinogen < 2.0 EU/DL (0.2-1.0); WBC,Urine <1 /HPF (0-6)
[2017-06-04 12:17] LABS: Basophils % 0.7 % (0.0-0.8); Eosinophils % 0.5 % (0.00-10.9); Hematocrit 39.2 VOL% (35.7-47.0); Hemoglobin 13.3 GM/DL (12.0-16.0); Immature Granulocytes % 0.4 %; Immature Granulocytes Absolute 0.02 #; Lymphocytes # 1.6 10*3/uL (1.4-4.0); Lymphocytes % 27.6 % (21.3-54.2); Mean Corpuscular HGB Conc 33.9 GM/DL (32-36); Mean Corpuscular Hemoglobin 29 PG (27-34); Mean Corpuscular Volume 84.1 FL (87-102); Monocytes # 0.3 10*3/uL (0.11-0.8); Monocytes % 5.6 % (1.7-12.7); Neutrophils # 3.7 10*3/uL (1.4-7.4); Neutrophils % 65.2 % (38.7-73.9); Platelet Count 174 T/CUMM (130-400); Red Blood Count 4.66 MC/CUMM (3.8-5.5); White Blood Count 5.7 T/CUMM (4-12)
[2017-06-04 12:44] LABS: PT Patient Result 10.3 SECS; Partial Thromboplastin Time 28.5 SECS (0-40)
[2017-06-04 12:45] LABS: Calcium 9.2 MG/DL (8.5-10.1); Potassium 4.1 MMOL/L (3.5-5.1)
--- NOTE | 2017-06-04 14:34 | XRay Report ---
XR chest 2V Indication: Respiratory preoperative evaluation Comparison: 23 February 2017 Findings: The heart and mediastinum are normal in size and configuration. The pulmonary vascularity is normal in caliber. No lung infiltrates, effusions, pneumothorax or other abnormality is demonstrated. Impression: Normal chest x-ray PROCEDURE INTERPRETED AT [facility] DEPARTMENT OF RADIOLOGY Final Report Signed by: Dr. Deion Duran
--- NOTE | 2017-06-12 06:49 | History and Physical Update ---
History and Physical Update - History and Physical H&P was reviewed, the patient examined and there: are no changes in the patients condition since last H&P was completed.
[2017-06-12] MEDS ORDERED: ceFAZolin 1,000 MG VIAL ONE (06:50)
[2017-06-12] MEDS ORDERED: SODIUM CHLORIDE 0.9% 100 ML IV ONE (06:51)
--- NOTE | 2017-06-12 07:02 | OB/GYN History & Physical ---
History of Present Illness Chief complaint: Pelvic pain symptomatic uterine fibroids History of present illness: Ms. Conner is a 46 year old female With 24 week size symptomatic uterine fibroids and pelvic pain midline who requests definitive surgical treatment of the above consist of total abdominal hysterectomy with possible bilateral salpingo-nephrectomy and indicated procedures. The risks benefits and alternatives were explained patient detail and informed us is obtained and all patient's questions were answered to her satisfaction Home Medications Medication Instructions Recorded Confirmed Type Pantoprazole Tab [Protonix Tab] 40 mg PO DAILY #30 tablet 02/24/17 06/12/17 Rx metFORMIN [Glucophage] 500 mg PO BID W/MEALS #60 tablet 02/24/17 06/12/17 Rx Losartan [Cozaar] 50 mg PO DAILY 06/04/17 06/12/17 History Allergies Allergy/AdvReac Type Severity Reaction Status Date / Time No Known Allergies Allergy Verified 06/12/17 06:41 12 point system: reviewed and no additional remarkable complaints except as stated Medical,Surgical,& Family Hx - Medical History Cardio: History of: Hypertension, Cardiovascular Problems (DR [place].) Neurology: No history of: Seizures HEENT: History of: Eye Problem (GLASSES), Dental Problems (CAPPED TEETH.) Endocrine: History of: Diabetes Mellitus (NIDDM) (Noncompliant with metformin for months according to daughter) No history of: Diabetes Mellitus (IDDM) Respiratory: No history of: Respiratory Problems (FLU VAC-NO; PNEU VAC-NO.) Gastrointestinal: History of: GERD, Liver Problems (FATTY.) Musculoskeletal: History of: Back/Neck Problems (NECK PAIN.) Reproductive: History of: Reproductive Problems (PELVIC PAIN, DUB, UTERINE FIBROIDS.) - Surgical History Abdominal Surgeries: Surgical HX of: Appendectomy - Family History Family History: Reports;: Family Cancer (MOTHER AND FATHER LUNG CA) - Social History Smoking Status: Never smoker Frequency of Alcohol Use: None Type of Drug Use: None Exam [employer] DES[employer] - Constitutional Vitals: Vital Signs Temp Pulse Resp BP Pulse Ox 06/12/17 06:38 97.5 F L 67 16 135/83 98 General appearance: normal weight, no acute distress - Head Head exam: Present: normal inspection, normocephalic, atraumatic - Eye Eye exam: Present: EOMI - Neck Neck exam: Present: normal inspection - Respiratory Respiratory exam: Present: clear to auscultation bilaterally - Breast Breasts: as per HPI Menstruation: as per HPI - Cardiovascular Cardiovascular exam: Present: regular rate and rhythm - GI/Abdominal GI/Abdominal exam: Present: normal bowel sounds - Extremities Exam Extremities exam: Present: normal inspection, normal capillary refill - Back Exam Back exam: Present: normal inspection - Neurological Exam Neurological exam: Present: alert, oriented X3 - Psychiatric Psychiatric exam: Present: normal affect, normal mood - Skin Skin exam: Present: normal color Assessment and Plan (1) Fibroid uterus Status: Acute Current Visit: Yes (2) Pelvic pain in female Status: Acute Current Visit: Yes (3) Prolapsed, uterovaginal, incomplete Status: Acute Current Visit: Yes Results - Labs CBC & BMP: 06/04/17 12:05 06/04/17 12:05
--- NOTE | 2017-06-12 08:52 | Operative Note ---
Date of procedure: 06/12/17 Pre-op diagnosis: Symptomatic uterine fibroids chronic pelvic pain prolapse Post-op diagnosis: same Procedure: PROCEDURE: 1. Total abdominal hysterectomy. 2. Bilateral salpingo-oophorectomy. 3. Monroe culdoplasty 4. Extensive lysis of adhesions. SURGEON: Seth Doty MD. FINDINGS: 1. Uterus greater than 22 weeks' size. 2. Evidence of pelvic adhesive disease involving the uterus and both adnexa 3. Entrapped left and right ovary. 4. Normal peristalsis of both ureters bilaterally. COMPLICATIONS: None. ESTIMATED BLOOD LOSS: 50 cc cc. DRAINS: Rick to gravity. DISPOSITION: The patient to Recovery Room in stable condition. She is to receive DVT prophylaxis to consist of Venodyne compression hose and Lovenox on postoperative day #1. OPERATIVE DESCRIPTION: After the risks, benefits and alternatives were explained to the patient in detail, informed consent was obtained. The patient was taken to the Operating Room where she was placed in the supine position. After achieving appropriate general endotracheal anesthesia, the perineum, vagina and the abdomen were prepped and draped in usual sterile fashion. Rick catheter was placed, which revealed clear urine. After achieving appropriate general endotracheal anesthesia and after the appropriate timeout, a Pfannenstiel incision was made and carried around the right side umbilicus. The incision was carried down through the subcutaneous tissue and down to fascia. The fascia was nicked in the midportion, undermined and incised both superiorly and inferiorly and making sure not to bother the bladder below. The peritoneum was identified and grasped with two curved hemostats and entered sharply using the Metzenbaum scissors and the incision extended superiorly and inferiorly. There was noted to be a large central pelvic mass extending to the abdomen, which was consistent with multiple uterine leiomyomata. The uterus was adhered posteriorly via scarring to the posterior peritoneum and this was freed up using blunt dissection. The left tube and ovary initially were not visualized and later be found to be scarred to the posterior cul-de-sac. The left ovary was noted to be streak. Utero-ovarian ligaments were identified bilaterally. They were back clamped using Dorrance Pean clamps and the utero- ovarian ligament was taken down after having been cross clamped with slightly curved Z-clamps and transected with curved Espinoza scissors and transfixed using # 1 Vicryl sutures. The infundibulopelvic ligaments were doubly ligated using #1 Monocryl suture. This dissection technique was carried out through the round ligaments bilaterally. The uterine vessels were identified bilaterally, skeletonized, and bladder flap was created anterior of the lower uterine segment. Uterine vessels were then cross clamped using slightly curved Z-clamp and back clamped using a curved Darrian clamp. The lower fundus was then amputated from the lower uterine segment using a #10 knife and with a large malleable as a backstop. The stump was then addressed using Ricki clamps. The specimen was then sent to pathology to be evaluated. I continued to dissect the bladder away caudate. The rest of the Cardinal ligament complex of the uterosacral ligament and the complex was taken down after having been cross clamped with curved Z-clamps and transected using curved Espinoza scissors and transfixed using #1 Monocryl sutures. The vagina was entered laterally on the left side. Eddie scissors were used to excise the cervix from the vagina at the low vaginal fornices. All four quadrants and margins of the cervix were grasped with long Allis clamps and the vagina were grasped with long Allis clamps and the vagina closed using #1 Monocryl suture in a figure of eight fashion. The uterosacral ligaments pedicles were incorporated in the angled sutures. The posterior cul-de-sac had then dissected away using extensive dissection, primarily blunt finger dissection to free up all the endometriosis attachments to the lower segment of the uterus. The ureters were identified and noted to be peristalsing throughout the procedure. The abdomen was copiously irrigated. All areas noted to be hemostatic. The peritoneum and fascia made hemostatic using electrocautery and closed using #1 PDS in a running fashion beginning at the right angles and overlapping slightly in the midline. The subcutaneous tissue was closed with 2-0 Vicryl suture in a running fashion and the skin with skin cory and a sterile pressure bandage was applied to the wound. All sponge, needle and instrument counts were correct at the end of the procedure. The patient was awoken from anesthesia without complications and taken to the Recovery Room in stable condition. Anesthesia: GETA Surgeon / Physician: Seth Doty Estimated blood loss: other (50 cc) Specimens: other (Uterus cervix tubes and ovaries to pathology) Condition: stable Disposition: floor Results - Labs CBC & BMP: 06/04/17 12:05 06/04/17 12:05 Discharge Plan - Discharge Medications No Action Pantoprazole Tab [Protonix Tab] 40 mg PO DAILY #30 tablet metFORMIN [Glucophage] 500 mg PO BID W/MEALS #60 tablet Losartan [Cozaar] 50 mg PO DAILY - Follow Up or Referral - Forms/Instructions
[2017-06-12] MEDS ORDERED: BENZOCAINE/MENTHOL LOZENGE 18/BOX PO PRN (08:53)
[2017-06-12] MEDS ORDERED: IBUPROFEN 800 MG TABLET PO PRN (08:53)
[2017-06-12] MEDS ORDERED: oxyCODONE/ACETAMINOPHEN 5-325 MG TABLET PO PRN (08:53)
[2017-06-12] MEDS ORDERED: ACETAMINOPHEN 325 MG TABLET PO PRN (08:53)
[2017-06-12] MEDS ORDERED: BISACODYL 10 MG SUPP RECTAL PRN (08:53)
--- NOTE | 2017-06-12 09:01 | Anesthesia Post-Op ---
Anesthesia Post OP - Post Ansesthetic Evaluation Patient seen in post op: Yes Resp: within normal limits CV: within normal limits Mental: within normal limits Temp: within normal limits [id number]: within normal limits Nausea and Vomiting: within normal limits Pain: within normal limits
[2017-06-12] MEDS ORDERED: MIDAZOLAM 2 MG/2 ML VIAL ONE (09:03)
[2017-06-12] MEDS ORDERED: PROPOFOL 200 MG/20 ML VIAL IV ONE (09:03)
[2017-06-12] MEDS ORDERED: SUCCINYLCHOLINE 200 MG/10 ML VIAL ONE (09:04)
[2017-06-12] MEDS ORDERED: KETOROLAC 30 MG/1 ML VIAL ONE (09:04)
[2017-06-12] MEDS ORDERED: LACTATED RINGERS 1,000 ML IV ONE (09:04)
[2017-06-12] MEDS ORDERED: fentaNYL 100 MCG/2 ML VIAL ONE (09:04)
[2017-06-12] MEDS ORDERED: ACETAMINOPHEN 1,000 MG/100 ML VIAL IV ONE (09:04)
[2017-06-12] MEDS ORDERED: ONDANSETRON 4 MG/2 ML VIAL ONE (09:04)
[2017-06-12] MEDS ORDERED: ROCURONIUM 100 MG/10 ML VIAL IV ONE (09:05)
[2017-06-12] MEDS ORDERED: SEVOFLURANE 1 UNIT/15 MINUTE INH ONE (09:05)
[2017-06-12 09:14] LABS: Apearance,Urine CLEAR (Clear); Bilirubin,Urine Negative (Negative); Blood, Urine Negative (Negative); Glucose,Urine (UA) Negative (Negative); Ketones,Urine Negative (Negative); Nitrite,Urine Negative (Negative); Protein,Urine Negative; Urine Color Straw (Yellow); Urine Specific Gravity 1.004 (1.001-1.035); Urine Urobilinogen < 2.0 EU/DL (0.2-1.0); WBC,Urine <1 /HPF (0-6)
[2017-06-12] MEDS ORDERED: HYDROmorphone 2 MG/1 ML VIAL IV PRN ×2 (09:15→09:57)
[2017-06-12] MEDS ORDERED: ONDANSETRON 4 MG/2 ML VIAL IV PRN (09:15)
[2017-06-12] MEDS ORDERED: LACTATED RINGERS 1,000 ML IV SCH (09:30)
[2017-06-12] MEDS: ONDANSETRON 4 MG/2 ML VIAL IV PRN ×2 (11:46→20:50)
[2017-06-12] MEDS ORDERED: PROMETHAZINE 25 MG/1 ML VIAL ONE (12:49)
[2017-06-12] MEDS ORDERED: PROMETHAZINE 25 MG/1 ML VIAL IM PRN (12:52)
[2017-06-12] MEDS: LACTATED RINGERS 1,000 ML IV SCH (15:08)
[2017-06-13] MEDS: LACTATED RINGERS 1,000 ML IV SCH (00:20)
[2017-06-13 06:13] LABS: Basophils % 0.2 % (0.0-0.8); Eosinophils % 0.2 % (0.00-10.9); Hematocrit 37.9 VOL% (35.7-47.0); Hemoglobin 13.2 GM/DL (12.0-16.0); Immature Granulocytes % 0.4 %; Immature Granulocytes Absolute 0.05 #; Lymphocytes # 1.4 10*3/uL (1.4-4.0); Lymphocytes % 11.7 % (21.3-54.2); Mean Corpuscular HGB Conc 34.8 GM/DL (32-36); Mean Corpuscular Hemoglobin 29 PG (27-34); Mean Corpuscular Volume 82.9 FL (87-102); Mean Platelet Volume 12.6 FL (9.6-12.0); Monocytes # 0.6 10*3/uL (0.11-0.8); Monocytes % 5.2 % (1.7-12.7); Neutrophils # 9.7 10*3/uL (1.4-7.4); Neutrophils % 82.3 % (38.7-73.9); Platelet Count 173 T/CUMM (130-400); Red Blood Count 4.57 MC/CUMM (3.8-5.5); Red Cell Distribution Width 12.9 % (9.3-17.3); White Blood Count 11.8 T/CUMM (4-12)
--- NOTE | 2017-06-13 07:04 | OB/GYN Progress Note ---
Assessment and Plan (1) Fibroid uterus Status: Acute Current Visit: Yes (2) Pelvic pain in female Status: Acute Current Visit: Yes (3) Prolapsed, uterovaginal, incomplete Status: Acute Current Visit: Yes COOK STATION - PN: Subj Interval history: Patient is doing well. She is tolerating her diet. She is alert and oriented -3 Cardiovascular regular rate and rhythm Lungs clear to auscultation Abdomen soft with appropriate tenderness and bowel sounds are present and her incision is dry no bleeding Is good refill HEENT shows pink conjunctiva assessment 1 day of surgery doing well Plan continue present management with expected DC in a.m. Exam COOK STATION - Constitutional Vitals: Vital Signs Temp Pulse Pulse Resp BP Pulse Ox Pulse Ox 06/13/17 05:00 18 06/13/17 04:00 98.8 F 82 18 137/76 99 06/13/17 03:00 20 06/13/17 02:00 18 06/13/17 01:00 20 06/13/17 00:00 98.9 F 84 20 116/73 99 06/12/17 23:00 18 06/12/17 21:40 98.5 F 06/12/17 20:10 99.7 F H 89 19 138/83 96 06/12/17 15:29 98.6 F 77 18 129/77 99 06/12/17 12:50 76 18 140/85 99 06/12/17 11:20 97.6 F 80 18 147/90 99 06/12/17 10:50 71 20 129/79 99 06/12/17 10:20 72 20 143/78 99 06/12/17 09:54 97 F L 68 20 144/80 99 06/12/17 09:50 97.0 F L 68 20 144/80 100 06/12/17 09:38 97.2 F L 69 24 152/88 98 06/12/17 09:28 70 24 161/87 99 06/12/17 09:18 73 23 150/98 99 06/12/17 09:08 74 26 H 143/94 99 06/12/17 09:03 72 22 141/92 100 06/12/17 08:58 71 26 H 140/90 100 06/12/17 08:53 99 F 76 20 144/99 100 Results - Labs CBC & BMP: 06/13/17 05:58 09/11/17 12:05
[2017-06-13] MEDS ORDERED: GLUCAGON 1 MG VIAL IM PRN (07:53)
[2017-06-13] MEDS ORDERED: DEXTROSE 50% 25 GM/50 ML VIAL IV PRN (07:53)
[2017-06-13] MEDS: metFORMIN 500 MG TABLET PO SCH ×2 (09:08→17:35)
[2017-06-13] MEDS: LOSARTAN 50 MG TABLET PO SCH (09:08)
[2017-06-13] MEDS: DOCUSATE SODIUM 100 MG CAPSULE PO PRN ×2 (09:08→22:08)
[2017-06-13] MEDS: SIMETHICONE CHEW 80 MG TABLET PO PRN ×2 (09:08→22:08)
[2017-06-13] MEDS: MAGNESIUM HYDROXIDE SUSP 30 ML UDCUP PO PRN ×2 (09:09→22:08)
[2017-06-13] MEDS: PANTOPRAZOLE 40 MG TABLET PO SCH (09:10)
[2017-06-13] MEDS ORDERED: ENOXAPARIN 40 MG/0.4 ML SYRINGE SUBCUT ONE (09:30)
--- NOTE | 2017-06-13 11:19 | Pathology Report from [facility] ---
[facility] ACCESSION # : [id number] PATIENT NAME : Renea Berry ORDERING DR : RAHUL MENDES MD CLINICAL HX: DUB, pelvic pain POST-OP DX: Same SPECIMEN INFO: Cervix, uterus, bilateral fallopian tube & ovaries GROSS DESCRIPTION: The specimen is received in formalin labeled with the patients name and consists of a 237 gram uterus with an unattached cervix which measures 10.0 x 9.5 x 6.5 cm. The serosa is red-candelaria with adhesions noted. The cervix measures 2.7 cm. The cervical os measures 0.5 cm. The endocervical canal is candelaria and patent. The endometrial cavity is hyperemic with a mucosal thickness of 0.1 cm. Sectioning reveals a few white myometrial nodules measuring up to 4.2 x 3.2 cm. The first ovary measures 3.4 x 2.8 cm with numerous adhesions noted on the ovary surface. Sectioning reveals two clear fluid filled cysts measuring up to 0.8 x 0.8 cm. The adjacent fallopian tube is fimbriated measuring 5.0 x 0.7 cm. The second ovary measures 3.5 x 2.5 cm with adhesions noted on the ovary surface. Sectioning reveals a few clear fluid filled cysts measuring up to 0.8 x 0.5 cm. The adjacent fallopian tube is fimbriated and measures 4.5 x 0.8 cm. Sections submitted: A cervix, B and C endomyometrium, D serosal adhesions, E nodules, F first ovary and tube, G second ovary and tube. DIAGNOSIS FOR RENEA BERRY: CERVIX, UTERUS, BILATERAL TUBES AND OVARIES ( HYSTERECTOMY, BILATERAL SALPINGO-OOPHORECTOMY): Benign cervix with chronic cervicitis and Nabothian cyst. Benign proliferative endometrium. Adenomyosis. Leiomyomata. Benign left and right fallopian tubes and ovaries. Serosal adhesions involving the myometrium and ovaries. COLLECTED DATE: 06/12/2017 [facility] REPORT DATE: 06/13/2017 ELECTRONICALLY SIGNED BY: Elma Cha M.D. 06/13/2017 - 9:28:32 [facility]
--- NOTE | 2017-06-14 07:07 | Discharge Summary ---
Hospital Course - Hospital Course Hospital Course: Postoperatively the patient did well. She had quick return of bowel bladder function. Remained afebrile and normotensive throughout her hospitalization. She is constantly discharged on postoperative day #2 on a regular diet Diagnosis - Discharge Diagnosis (1) Fibroid uterus Status: Acute (2) Pelvic pain in female Status: Acute (3) Prolapsed, uterovaginal, incomplete Status: Acute Discharge Plan - Discharge Data Disposition: Disch To Home/Self Care Condition at Discharge: Stable Discharge Diet: regular diet Activity: increase activity as tolerated, no lifting, other (Pelvic rest) Hygiene: may shower Weight Bearing at Discharge: full weight bearing Driving: not until seen by doctor Contact your physician if you experience:: fever over 101, Difficulty voiding, Redness or swelling, Nausea/Vomiting, Shortness of breath, Bleeding, pain uncontrolled by pain medications - Discharge Medications New Ibuprofen Tab [Motrin Tab] 800 mg PO Q8H PRN tablet PRN Reason: Pain Mild To Moderate (1-7) Losartan [Cozaar] 50 mg PO DAILY tablet metFORMIN [Glucophage] 500 mg PO BID W/MEALS tablet oxyCODONE/ACETAMINOPHEN 5-325 [Percocet 5-325] 1 tablet PO Q4H PRN #20 tablet PRN Reason: Pain Severe (8-10) Acetaminophen Tab [Tylenol Tab] 325 mg PO Q4H PRN tablet PRN Reason: Fever, Headache, Mild Pain Continue Pantoprazole Tab [Protonix Tab] 40 mg PO DAILY #30 tablet Discontinued metFORMIN [Glucophage] 500 mg PO BID W/MEALS #60 tablet Losartan [Cozaar] 50 mg PO DAILY - Follow Up or Referral Follow Up: Seth Doty MD [Physician] - 1 Week - Forms/Instructions Exam - Constitutional Vitals: Period Temp Pulse Resp BP Sys/Heredia Pulse Ox Last 24 Hr 98.0 F-100.8 F 84-89 16-20 115-154/70-84 94-97 Discharge Results Procedures and tests throughout hospitalization: Pending Orders 06/12/17 Urine Culture Routine Labs on day of discharge: Labs from last 24 hours 06/13/17 06/13/17 21:50 08:00 POC Glucose 244 H 205 H DS: Provider Date of admission: 06/12/17 08:53 Attending physician on admission: Kelin Borrero Discharging clinician: Kelin Borrero Expected date of discharge: 06/14/17
[2017-06-14 07:44] VITALS: BP 139/78
[2017-06-14] MEDS: metFORMIN 500 MG TABLET PO SCH (08:51)
[2017-06-14] MEDS: LOSARTAN 50 MG TABLET PO SCH (08:52)
[2017-06-14] MEDS: DOCUSATE SODIUM 100 MG CAPSULE PO PRN (08:52)
[2017-06-14] MEDS: SIMETHICONE CHEW 80 MG TABLET PO PRN (08:52)
[2017-06-14] MEDS: PANTOPRAZOLE 40 MG TABLET PO SCH (08:52)
[2017-06-14] MEDS: MAGNESIUM HYDROXIDE SUSP 30 ML UDCUP PO PRN (08:52)
== END 2017-06-14 11:15 | disposition home or self-care (01) | DRG 743 ==
LOC: N.OR 06:14 → N.SDSINP 06:15 → N.OB 09:44
PROVIDERS: ADMIT Specialist; ATTEND Specialist